=== PATIENT | male | born 1950 | race Caucasian/White ===

== ENCOUNTER → 2025-04-03 08:41 | Outpatient (REF) | payer MEDICARE, OTHER, SELFPAY | LOC: RAD 08:41 | PROVIDERS: ATTENDING PHYSICIAN Urology; FAMILY PHYSICIAN Internal Medicine | DX: R31.0 Gross hematuria (principal); Z76.89 Persons encountering health services in other specified circumstances; Z01.89 Encounter for other specified special examinations; I10 Essential (primary) hypertension | CPT/HCPCS: 74178; 93005; Q9967 ==

== ENCOUNTER → 2025-07-22 09:38 | Outpatient (REF) | payer MEDICARE, OTHER, SELFPAY ==
--- NOTE | 2025-05-06 14:25 | PN.DIAED02 ---
Referral
DSME Class Series Code: [id number]
Referred For: Diabetes Self-Management Training, Medical Nutrition Therapy, Self-Blood Glucose Monitoring, Long-Term Complication Instruction, Accute Complication Instruction, Continuous Glucose Monitoring, Medication management, Care Coordination,
Disease Management
PHI Release Authorization Form Signed: Yes
Demographic
(1) Type 2 diabetes mellitus without complications
Status: Chronic
Qualifiers:
Diabetes mellitus stopboard assembler insulin use: without penitentiary use Qualified Code(s): E11.9 - Type 2 diabetes mellitus without complications
Code(s): E11.9 - Type 2 diabetes mellitus without complications
Patient's primary language-: Danish
Education: Some college
Occupation: Retired
- Social
Primary Support Person: Self & spouse, Family
Primary Care Takers: Self & spouse, Family
Living Arrangements: Self & spouse, Family
- Learning Methods
Preferred Method: Hands-on demonstration
Barriers to Learning: None
Glycemic Control
- Blood Glucose Monitoring Assessment
Date: 05/06/25 (82 2 hours PP)
Blood glucose monitoring at home: Yes
Monitor Brands: Other ([employer])
Frequency: 1x per day
Time: fasting
- Ketone Monitoring Assessment
Patient monitoring ketone: No
- Hyperglycemia Assessment
Experiences Hyperglycemia: Yes
Frequency: Other (radomly experiences neuropathy in feet)
- Hypoglycemia Assessment
Patient carries glucose source: No
- Blood Glucose Monitoring Results
Source: meter (BS 82 2 hours post prandial today)
- Hemoglobin A1c
Date: 04/02/25
A1C Percentage (%): 7.6
Medical History of Diabetes
Family Diabetes History: Other (many on mother's side)
Previous Diabetes Education: No
Previous visit with Dietitian: No
Complications/Comorbidity/Specialist: Hypertension (Amlodipine 5 mg QD, lisinopril prescribed but will take after IG cancer treatments over), Hyperlipidemia (Rosuvastatin 5 mg QD), Metabolic (T2D: Metformin 500 mg QD)
Measures
- Anthropometrics
Height: 5 ft 6 in
Actual Weight: 193 lb 9.6 oz
- Blood Pressure / Pulse
Blood pressure: 145/76
Pulse: 70
- Diabetes Management
Medical Management for Diabetes: Complete physical exam (04/02/2025), Dental exam (04/07/2020), Dilated eye exam (03/07/2025), Monofilament testing (03/29/2020)
Self-Care
- Tobacco Usage
Do you now, or have you ever smoked?: Never smoked
- Alcohol & Drugs Usage
Drinks Alcohol: Yes
Amount/day: Other (once per week)
- Meals & Dining
Meals & Dining: Patient skips meals: Yes, Food Intolerance / Allergy: No, Cultural / Restorationism Dietary Needs: No
Primary Food Md Urologist: Spouse
Primary Director Of Strategic Marketing: Spouse
Dining Out Frequency: Never
- Physical Activity
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
Patient participates in physical Activity: Yes (uses seating elliptical, golf)
Activity Types: Biking (seated elliptical), Other (golf)
Duration: 10-20 minutes
Frequency: 3-5x per week
Intensity: Moderate
- Self Foot-Care
Foot Problems: None
- Patient-Self Assessment
Diabetes Knowledge: Poor
Feelings About Diabetes: Sadness / Depression
General Health: Good
Importance of Health: Extremely
Stress Level: Low
Diabetes Interferes With:: Family/social activities
Barriers to Diabetes Management: Nothing
Depression Survey Score: 5
- Diabetes Identification
Carries Diabetes Identification: No
Diabetes Identification Information Provided: Yes
Care Plan
- Education Needs
Patient Education Needs: Diabetes disease process, Chronic complications, Acute complications, Medication, Monitoring, Physical activity, Psychosocial Adjustment, Nutritional management, Goal setting & problem solving
Recommended Diabetes Training Program based on assessment: Outpatient Diabetes Education Program
- Plan of Care
Plan of Care:
05/06/2025 INITIAL DSME CONSULTATION
Met with participant today for registration and initiation of Diabetes Self-management. Pt was recommended by his PCP due to new diagnosis [facility] HbA1c of 7.6% on 04/02/2025. States he has had prediabetes for years and was instructed to watch diet and
exercise. He is currently taking 500 mg Metformin with breakfast without side effects.
He just had surgery for bladder cancer 2 weeks ago, in May will have 6 weekly appointments for immunotherapy. He will monitor how he feels and contact us if he needs to reschedule the class date/time. I educated to keep PCP and oncologist
current on his glucose readings in case they need adjusted with the therapy.
He monitors glucose on most days fasting in AM, has a working glucometer at home. His AM BS have increased from 120-125 to 160-180 mg/dL recently. I checked his glucose at his request, 2 hours after breakfast results are 82, I recommended he
check once a day in the AM and alternate 2 hours after meals and review with provider. He also mentioned he eats dinner no later than 6pm, sleeps 10 hours and eats breakfast at 10 am. He mentioned an interested in intermittent fasting. I educated
him that he may be fasting too long, could be experiencing rebound hyperglycemia in AM. Discussed healthy snacks 1-2 hours prior to bed: rice cake with hard boiled egg, peanut butter, or cheese or non fat faroese yogurt with berries and nuts. He
formerly was eating ice cream at night, has since stopped. He may contact his office to follow up with AM BS prior to class.
I reinforced the importance of exercise to help lower glucose, he recently purchased a seated elliptical as he has OA in both knees. He also golfs. Discussed goals of 30 minutes ore more each day including light weight training. We reviewed the
complications of diabetes, states he has occasional tingling in his feet. Denies vision problems, but has not been to a dentist in 5 years. I recommended he maintain dental visits every 6 months, diabetes and poor oral care can increase risk of
infection. We also discussed the impact of physical and psychological stress in raising glucose levels.
I provided information on billing code for class, recommended he contact his insurance company for cost and coverage. He verbalized understanding. He has office phone # and was encouraged to outreach with any questions or concerns.
--- NOTE | 2025-05-06 14:55 | PN.DIAED04 ---
Education Record
- Education Record
Class Attended: Other (INITIAL DSME CONSULTATION)
DSME Class Series Code: [id number]
Instructor: Nurse Practitioner (CHAYA Noel)
Pre-Program Knowledge: No knowledge
Pre-Test Score (%): 55
Post-Program Knowledge: No knowledge
Goals
- Goal 1
Being Active: Exercise more often
Goals To Be Evaluated: Exercise more often
- Goal 2
Healthy Eating: Make better food choices
Goals To Be Evaluated: Make better food choices
- Goal 3
Monitoring: Monitor more often (FASTING AM AND 2 HOURS PP )
Goals To Be Evaluated: Monitor more often
--- NOTE | 2025-07-23 12:29 | PN.DIAED14 ---
This is to notify you that your patient with diabetes, CODEY WU ( 1950), has enrolled in our diabetes self-management classes that are being held at [facility].
These classes will include an introduction to diabetes, diet, medication, exercise and prevention of complications. At the end of our class series, you will receive a report of your patient's participation and progress for your records.
Please contact me at the Diabetes Center, , if there is any particular information regarding your patient that might be helpful to me.
Sincerely,
Donn LARKIN-TYSHAWN, [facility] [place][NOTE 3]ES
--- NOTE | 2025-07-23 12:29 | PN.DIAED04 ---
Education Record
- Education Record
Class Attended: Class 1
DSME Class Series Code: [id number]
Instructor: Registered Nurse (Rupinder Mo RN)
Class Curriculum:
Outpatient Diabetes Education Program:
Class 1 (120 minutes)
Describe the diabetes disease process and treatment options
Diabetes management
Develop personal strategies to promote health and behavior change
Integrate psychosocial adjustment for daily living
Monitor blood glucose and other parameters. Interpret and use the results for self-management decision making
Prevent, detect, and treat acute complications
Class Length (mins): 120
Post-Class 1 Test Score (%): 94
== END ==
LOC: DES 09:38
PROVIDERS: ATTENDING PHYSICIAN Internal Medicine
DX: E11.9 Type 2 diabetes mellitus without complications (principal)
CPT/HCPCS: 99078

== ENCOUNTER → 2025-07-29 08:32 | Outpatient (REF) | payer MEDICARE, OTHER, SELFPAY ==
--- NOTE | 2025-07-30 09:46 | PN.DIAED04 ---
Education Record
- Education Record
Class Attended: Class 2
DSME Class Series Code: [id number]
Instructor: Registered Dietitian (Katalina Odonnell, RD, LDN, CDE)
Class Curriculum:
Outpatient Diabetes Education Program:
Class 2 (120 minutes)
Incorporate nutritional management into lifestyle
Understanding nutritional value
Understanding carbohydrate counting
Class Length (mins): 120
== END ==
LOC: DES 08:32
PROVIDERS: ATTENDING PHYSICIAN Internal Medicine
DX: E11.9 Type 2 diabetes mellitus without complications (principal)
CPT/HCPCS: 99078

== ENCOUNTER → 2025-08-05 14:51 | Outpatient (REF) | payer MEDICARE, OTHER, SELFPAY ==
--- NOTE | 2025-08-06 14:08 | PN.DIAED04 ---
Education Record
- Education Record
Class Attended: Class 3
DSME Class Series Code: [id number]
Instructor: Registered Dietitian (Katalina Odonnell, RD, LDN, CDE)
Class Curriculum:
Outpatient Diabetes Education Program:
Class 3 (120 minutes)
Incorporate nutritional management into lifestyle
Class Length (mins): 120
Post-Class 2 & 3 Test Score (%): 88
== END ==
LOC: DES 14:51
PROVIDERS: ATTENDING PHYSICIAN Internal Medicine
DX: E11.9 Type 2 diabetes mellitus without complications (principal)
CPT/HCPCS: 99078

== ENCOUNTER → 2025-08-12 09:12 | Outpatient (REF) | payer MEDICARE, OTHER, SELFPAY ==
--- NOTE | 2025-08-13 09:47 | PN.DIAED04 ---
Education Record
- Education Record
Class Attended: Class 4
DSME Class Series Code: [id number]
Instructor: Registered Nurse (Rupinder Mo RN)
Class Curriculum:
Outpatient Diabetes Education Program:
Class 4 (120 minutes)
Develop personal strategies to promote health and behavior change
Incorporate physical activity into lifestyle
Utilize medications safety for maximum therapeutic effectiveness
Understand different medication/insulin mechanism of action
Preparing for travel
Class Length (mins): 120
Post-Class 4 Test Score (%): 93
== END ==
LOC: DES 09:12
PROVIDERS: ATTENDING PHYSICIAN Internal Medicine
DX: E11.9 Type 2 diabetes mellitus without complications (principal)
CPT/HCPCS: 99078

== ENCOUNTER → 2025-08-19 08:47 | Outpatient (REF) | payer MEDICARE, OTHER, SELFPAY ==
--- NOTE | 2025-08-20 14:18 | PN.DIAED04 ---
Education Record
- Education Record
Class Attended: Class 5
DSME Class Series Code: [id number]
Instructor: Registered Nurse (Rupinder Mo RN)
Class Curriculum:
Outpatient Diabetes Education Program:
Class 5 (120 minutes)
Prevent, detect, and treat acute complications
Prevent, detect, and treat chronic complications through risk reduction
Develop personal strategies to address psychosocial issues and concerns
Development of diabetes self-management support plan
Letter to physician with DSMS plan attached sent
Class Length (mins): 120
Post-Program Knowledge: Demonstrates competency
Post-Test Score (%): 83
Post-Program Assessment
- Post-Program Assessment
Actual Weight: 191 lb
Blood pressure: 140/76
Post-Program Depression Survey Score: 3
Reviewing Previous Goals?: Yes
Pre-Program Depression Survey Score: 5
- Goals 1 Evaluation
Goals To Be Evaluated: Exercise more often
- Goals 2 Evaluation
Goals To Be Evaluated: Make better food choices
- Goals 3 Evaluation
Goals To Be Evaluated: Monitor more often
--- NOTE | 2025-08-20 14:19 | PN.DIAED16 ---
This is to notify you that your patient with diabetes, CODEY WU ( 1950), has attended the entire series of Diabetes Self-Management Education Classes.
Class 1 (120 minutes): Diabetes Overview - monitoring, stress/psychosocial adjustment, support, goal setting
Class 2 (120 minutes): Meal Planning - serving sizes, menu plans
Class 3 (120 minutes): Introduction to Carbohydrate Counting, Analyzing Food Labels
Class 4 (120 minutes): Medication, Exercise and Activity
Class 5 (120 minutes): Sick Day Management, Strategies to Reduce Complications, Problem Solving, Resources
The following behavioral goals were identified:
Goal #1: Exercise more often
Goal #2: Make better food choices
Goal #3: Monitor more often
A follow-up call will be made within three to six months to evaluate attainment of these goals and to check post-program Hemoglobin A1c and overall progress. All class participants are encouraged to contact me if I can be any further assistance in
learning how to manage their diabetes.
Sincerely,
Donn LARKIN-, [facility]
== END ==
LOC: DES 08:47
PROVIDERS: ATTENDING PHYSICIAN Internal Medicine
DX: E11.9 Type 2 diabetes mellitus without complications (principal)
CPT/HCPCS: 99078

== ENCOUNTER → 2025-10-07 07:09 | Outpatient (REF) | payer MEDICARE, OTHER, SELFPAY | LOC: HWRCS 07:09 | PROVIDERS: ATTENDING PHYSICIAN Internal Medicine | DX: R06.9 Unspecified abnormalities of breathing (principal); R94.31 Abnormal electrocardiogram [ECG] [EKG] | CPT/HCPCS: 78452; 93017; A9500 ==